=== PATIENT | female | born 1970 | race African-American/Black ===

== ENCOUNTER 2017-09-09 19:02 | Emergency (ER) | payer SELFPAY ==
[2017-09-09] MEDS ORDERED: Albuterol/Ipratropium Neb 3 ML AERS HHN ONE ×2 (19:24→19:34)
--- NOTE | 2017-09-09 20:20 | ED Physician Chart ---
ED Chief Complaint/HPI - Patient Information Date Seen:: 09/09/17 Time Seen:: 19:19 Chief Complaint:: COUGH History of Present Illness:: THIS IS A 46 YO BLACK FEMALE WHO STATES THAT SHE HAS BEEN COUGH FOR THE LAST SEVERAL DAYS WITH A HISTORY OF ASTHMA. SHE DENIES FEVER AND SPUTUM. SHE FORGOT HER MEDS AND IS FROM [facility]. SHE DENIES HYPERTENSION, DIABETES AND HEART DISEASE. Allergies:: Allergies Allergy/AdvReac Type Severity Reaction Status Date / Time benzonatate Allergy Verified 09/09/17 19:22 [From Tessalon Perles] [email or web address] [From Robitussin] Allergy Verified 09/09/17 19:13 Vitals:: Vital Signs - 8 hr 09/09/17 09/09/17 19:15 19:39 Temp 98.8 F HR 95 97 RR 18 18 BP 151/76 O2 Sat % 97 97 Historian:: Patient Review:: Nurse's Note Reviewed ED Review of Systems - Review of Systems General/Constitutional: No fever, No chills, No weight loss, No weakness, No diaphoresis, No edema, No loss of appetite Skin: No skin lesions, No rash, No bruising Head: No headache, No light-headedness Eyes: No loss of vision, No pain, No diplopia ENT: No earache, No nasal drainage, No sore throat, No tinnitus Neck: No neck pain, No swelling, No thyromegaly, No stiffness, No mass noted Cardio Vascular: No chest pain, No palpitations, No PND, No orthopnea, No edema Pulmonary: No SOB, Cough, No sputum, Wheezing GI: No nausea, No vomiting, No diarrhea, No pain, No melena, No hematochezia, No constipation, No hematemesis G/U: No dysuria, No frequency, No hematuria Musculoskeletal: No bone or joint pain, No back pain, No muscle pain Endocrine: No polyuria, No polydipsia Psychiatric: No prior psych history, No depression, No anxiety, No suicidal ideation Hematopoietic: No bruising, No lymphadenopathy Allergic/Immuno: No urticaria, No angioedema Neurological: No syncope, No focal symptoms, No weakness, No paresthesia, No headache, No seizure, No dizziness, No confusion, No vertigo ED Past Medical History - Past Medical History Obtainable: Yes Past Medical History: No significant medical hx Family Medical History - Family Member Mother History Unknown: Yes ED Physical Exam - Physical Examination General/Constitutional: Awake, Well-developed, well-nourished, Alert, No distress, GCS 15, Non-toxic appearing, Ambulatory Head: Atraumatic Eyes: Lids, conjuctiva normal, PERRL, EOMI Skin: Nl inspection, No rash, No skin lesions, No ecchymosis, Well hydrated, No lymphadenopathy ENMT: External ears, nose nl, Nasal exam nl, Lips, teeth, gums nl Neck: Nontender, Full ROM w/o pain, No JVD, No nuchal rigidity, No bruit, No mass, No stridor Respiratory: Nl effort/Exclusion, Clear to Auscultation, No Wheeze/Rhonchi/ Rales (BILATERAL RHONCHI HEARD) Cardio Vascular: RRR, No murmur, gallop, rubs, NL S1 S2 GI: No tenderness/rebounding/guarding, No organomegaly, No hernia, Normal BS's, Nondistended, No mass/bruits, No McBurney tenderness : No CVA tenderness Extremities: No tenderness or effusion, Full ROM, normal strength in all extremities, No edema, Normal digits & nails Neuro/Psych: Alert/oriented, DTR's symmetric, Normal sensory exam, Normal motor strength, Judgement/insight normal, Mood normal, Normal gait, No focal deficits Misc: Normal back, No paraspinal tenderness ED Assessment - Assessment General Assessment: BRONCHITIS ED Septic Shock - . Is Septic Shock (SBP<90, OR Lactate>4 mmol\L) present?: No - <6hrs of presentation: Vital Signs: Vital Signs - 8 hr 09/09/17 09/09/17 19:15 19:39 Temp 98.8 F HR 95 97 RR 18 18 BP 151/76 O2 Sat % 97 97 ED Reassessment (Disposition) - Reassessment Reassessment Condition:: Improved - Diagnosis Diagnosis:: BRONCHITIS - Patient Disposition Discharge/Transfer:: [facility]/AWOL (THE PATIENT LEFT WITHOUT BEING DISCHARGED. SHE DID NOT WANT ANTIBIOTIC ONLY CODIENE.) ED Discharge Plan - Patient Disposition Admit/Discharge/Transfer: PATIENT ELOPED Condition at Disposition: Improved
== END 2017-09-09 19:45 | disposition left against medical advice (07) ==
LOC: ER 19:02
DX: J40 Bronchitis, not specified as acute or chronic (principal); Z88.8 Allergy status to other drugs, medicaments and biological substances
CPT/HCPCS: 99283; 94640; J0696; J2930; Z7502